=== PATIENT | male | born 1940 | race Caucasian/White ===

== ENCOUNTER 2019-02-18 10:13 | Emergency (ER) | payer MEDICARE, OTHER ==
[~2019-02-18] VITALS: Ht 188 cm; Wt 99.5 kg
[2019-02-18 10:23] VITALS: Ht 188 cm; Wt 99.5 kg
[2019-02-18] MEDS ORDERED: DILANTIN100 MG PO (10:25)
[2019-02-18] MEDS ORDERED: CRESTOR10 MG PO (10:26)
[2019-02-18] MEDS ORDERED: SINGULAIR10 MG PO (10:26)
[2019-02-18] MEDS ORDERED: LUMIGAN 0.01%2.5 ML EACH EYE (10:27)
[2019-02-18] MEDS ORDERED: FISH OIL 1,0001 CA1 PO (10:27)
[2019-02-18] MEDS ORDERED: ASPIRIN81 MG PO (10:27)
[2019-02-18] MEDS ORDERED: ASCORBIC ACID500 MG PO (10:27)
[2019-02-18] MEDS ORDERED: CENTRUM MEN'S1 EACH PO (10:28)
[2019-02-18] MEDS ORDERED: CO Q-10100 MG PO (10:28)
[2019-02-18] MEDS ORDERED: VOLTAREN75 MG PO (11:13)
[2019-02-18 12:08] VITALS: BP 138/77
== END 2019-02-18 12:05 | disposition home or self-care (01) ==
LOC: D.ER 10:13
DX: M25.512 Pain in left shoulder (principal)